=== PATIENT | female | born 2000 | race African-American/Black ===

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

== ENCOUNTER 2022-07-09 11:33 | Emergency (ER) | payer BC ==
[~2022-07-09] VITALS: Ht 167.6 cm; Wt 64.0 kg
[2022-07-09 11:40] VITALS: BP 140/77
== END 2022-07-09 13:10 | disposition home or self-care (01) ==
LOC: ER 11:33
DX: H93.13 Tinnitus, bilateral (principal); H71.11 Cholesteatoma of tympanum, right ear
CPT/HCPCS: 81025; 99282